=== PATIENT | male | born 1975 | race Caucasian/White ===

== ENCOUNTER 2016-07-26 11:40 | Emergency (ER) | payer SELFPAY ==
[2016-07-26 11:01] LABS: WBC (NOT ORDERED) (RFLEX) 0 (0-5)
[2016-07-26 11:09] LABS: ASCORBIC ACID (UR NOT ORDER) NEG (NEG); BILIRUBIN, URINE NEGATIVE (NEG); ER URINALYSIS TAT 0 Hrs 12 Mins; KETONE, URINE NEGATIVE (NEG); LEUKOCYTE ESTERASE(NOT OR NEG (NEG); NITRITE (URINE) NEG (NEG)
== END 2016-07-26 13:01 | disposition home or self-care (01) ==
LOC: ER 11:40
PROVIDERS: Physician Assistant
DX: R10.9 Unspecified abdominal pain (principal); M54.9 Dorsalgia, unspecified; Z87.442 Personal history of urinary calculi
CPT/HCPCS: 74000; 81001; 96372; 99284; J1885

== ENCOUNTER 2016-10-29 18:37 | Emergency (ER) | payer SELFPAY | END 2016-10-29 19:58 | disposition home or self-care (01) | LOC: ER 18:37 | DX: S46.912A Strain of unspecified muscle, fascia and tendon at shoulder and upper arm level, left arm, initial encounter (principal); X58.XXXA Exposure to other specified factors, initial encounter | CPT/HCPCS: 73030-LT; 99283 ==

== ENCOUNTER 2016-10-31 19:28 | Emergency (ER) | payer SELFPAY ==
[2016-10-31 21:01] LABS: ASCORBIC ACID (UR NOT ORDER) NEG (NEG); BILIRUBIN, URINE NEGATIVE (NEG); ER URINALYSIS TAT 0 Hrs 09 Mins; KETONE, URINE NEGATIVE (NEG); LEUKOCYTE ESTERASE(NOT OR NEG (NEG); NITRITE (URINE) NEG (NEG); WBC (NOT ORDERED) (RFLEX) < 1 (0-5)
== END 2016-10-31 22:20 | disposition home or self-care (01) ==
LOC: ER 19:28
PROVIDERS: Nurse Practitioner Acute Care
PROC: 0T9B70Z Drainage of Bladder with Drainage Device, Via Natural or Artificial Opening (ICD-10-PCS; principal; 2016-10-31)
DX: R35.0 Frequency of micturition (principal); Z87.442 Personal history of urinary calculi
CPT/HCPCS: 74176; 81001; 82962; 96374; 99284; J1885